=== PATIENT | female | born 1975 | race Caucasian/White ===

== ENCOUNTER 2020-05-09 10:59 | Emergency (ER) | payer MEDICAID ==
--- NOTE | 2020-05-09 11:49 | XRAY Report ---
PROCEDURE: Knee 2 View LT INDICATIONS: Knee pain status post fall down 6 stairs TECHNIQUE: 2 views of the left knee(s) were acquired. COMPARISON: None. FINDINGS: Bones: Normal patellar height and position. No evidence of fracture or dislocation. Fabella noted. Sharon int spaces are maintained. No significant arthritic changes. Soft tissues: No joint effusion. No suspicious soft tissue calcifications. IMPRESSION: No acute finding or other imaging explanation for pain. Reviewed by: Felipe Lara MD on 05/09/2020 10:48 AM [facility] Approved by: Felipe Lara MD on 05/09/2020 10:48 AM [facility] Station ID: [id number]
[2020-05-09] MEDS ORDERED: oxyCODONE/ACET 5/325 Prepack 4 PO STA (12:26)
--- NOTE | 2020-05-09 12:29 | ED Physician Documentation ---
History of Present Illness - Stated complaint Stated Complaint: GLF - Chief complaint Chief Complaint: Ext Problem - History obtained from History obtained from: Patient - Additonal information Additional information: 44yF presents s/p fall down 6 stairs last night onto L knee with immediate severe pain, a/w popping sensation, constant, aching, located in medial knee, radiating to anterior, worse with weight bearing and rom. no other injuries. denies ht loc ac. Review of Systems Skin: denies: Abrasion (s) Musculoskeletal: reports: Joint pain Neurologic: denies: Head injury, LOC PD PAST MEDICAL HISTORY - Past Medical History Past Medical History: Yes Endocrine/Autoimmune: HyPOthyroidism - Past Surgical History Past Surgical History: Yes General: Cholecystectomy /[employer]: Hysterectomy - Present Medications Home Medications: Ambulatory Orders Medication Instructions Recorded Confirmed Ibuprofen [Motrin] 600 mg PO Q6H PRN #30 tab 05/09/20 Levothyroxine [Synthroid] 150 mg PO DAILY 05/09/20 05/09/20 - Allergies Allergies/Adverse Reactions: Allergies Allergy/AdvReac Type Severity Reaction Status Date / Time Penicillins Allergy Anaphylaxis Verified 05/09/20 11:12 cephalexin [From Keflex] AdvReac Anaphylaxis Verified 05/09/20 11:12 Sulfa (Sulfonamide AdvReac Rash Verified 05/09/20 11:12 Antibiotics) - Social History Does the pt smoke?: No Smoking Status: Never smoker Does the pt drink ETOH?: Yes Does the pt have substance abuse?: No Substance Use and Type: CBD oil / Products - Immunizations Immunizations are current?: Yes - POLST Patient has POLST: No PD ED PE NORMAL - Vitals Vital signs reviewed: Yes - General General: Alert and oriented X 3, No acute distress, Well developed/nourished - HEENT HEENT: Atraumatic, PERRL, EOMI - Neck Neck: No bony TTP - Extremities Extremities: Other (+anterior drawer sign on L knee. tender with valgus and varus stress. tender with flexion and extension. 2+ dp/pt pulses. normal sensation and cap refill bilaterally. no discernable swelling in knees) - Neuro Neuro: Alert and oriented X 3 Results - Vitals Vitals: Oxygen O2 Source Room air PD MEDICAL DECISION MAKING - ED course ED course: 44yF presents s/p mechanical fall on knee with likely ligament strain. plan to f/u ortho in 1 week. knee immobilizer placed. strict return precautions given. Departure - Departure Disposition: 01 Home, Self Care Clinical Impression: Knee pain, left Condition: Good Instructions: ED RICE Follow-Up: Caleb Charles MD [Provider Admit Priv/Credential] - Prescriptions: Ibuprofen [Motrin] 600 mg PO Q6H PRN #30 tab PRN Reason: Pain Comments: You were seen in the ED for knee pain. you have no broken bones on xray. You likely have ligament injury. Wear a knee immobilizer until you follow up with orthopedics in 1 week. return to the ed for any new or worsening symptoms or other concerns. Discharge Date/Time: 05/09/20 13:27
[2020-05-09] MEDS ORDERED: oxyCODONE ER 10 MG TABLET PO STA (12:46)
[2020-05-09] MEDS ORDERED: oxyCODONE 5 MG TABLET PO STA (13:02)
[2020-05-09 13:27] VITALS: BP 116/80
== END 2020-05-09 13:27 | disposition home or self-care (01) ==
LOC: ED 10:59
DX: M25.562 Pain in left knee (principal)
CPT/HCPCS: 73560; 99283; 99284; A9270